=== PATIENT | female | born 1945 | race Two or more races ===

== ENCOUNTER 2024-05-06 13:48 | Outpatient (AMB) | payer MEDICARE, MEDICAID, SELFPAY ==
--- NOTE | 2024-05-06 14:17 | PD.ORTHCLVIS ---
Vital signs 05/06/24 14:20 Height 1.65 m Height Method Stated Weight 87.997 kg Weight Measurement Method Standing Scale BMI 32.3 BP 133/72 H Blood Pressure Source Automatic Cuff Blood Pressure Location Left Upper Arm Position Sitting Respiration 19 Pulse 74 Pulse Source Monitor Temp 97.3 F Temp Source Temporal Artery Scan Pulse Oximetry (%) 96 Oxygen Delivery Method Room Air Med/Allergies Allergies & Medications Allergies No Known Allergies Allergy (Verified 05/06/24 14:21) Medication Reconciliation hydrocodone 7.5 mg-acetaminophen 325 mg tablet 1 tab PO Q8H PRN Pain 02/24/19 [History Confirmed 05/06/24] levothyroxine 112 mcg tablet 112 mcg PO QDAY 02/24/19 [History Confirmed 05/06/24] losartan 100 mg tablet 100 mg PO QDAY 02/24/19 [History Confirmed 05/06/24] albuterol sulfate 90 mcg/actuation aerosol inhaler (Ventolin HFA) 2 puff inhalation Q4H PRN sob #2 grams 04/28/19 [Rx Confirmed 05/06/24] budesonide-formoterol HFA 80 mcg-4.5 mcg/actuation aerosol inhaler (Symbicort) 1 puff inhalation DAILY #6.9 grams 04/28/19 [Rx Confirmed 05/06/24] guaifenesin 600 mg tablet, extended release 12 hr 600 mg PO BID PRN congestion #10 tabs 04/28/19 [Rx Confirmed 05/06/24] levofloxacin 500 mg tablet (Levaquin) 500 mg PO QDAY #7 tabs 04/28/19 [Rx Confirmed 05/06/24] methylprednisolone 4 mg tablets in a dose pack (Medrol (Moreno)) 4 mg PO .as directed #21 tabs 04/28/19 [Rx Confirmed 05/06/24] Exam Exam Patient is in no acute distress and is cooperative with the examination today. Breathing is nonlabored. In no respiratory distress. Bilateral extremities were evaluated and demonstrates sensation intact to light touch. Palpable pedal pulses are present. No significant edema is present. Bilateral hips were examined. The patient has no pain with log roll of the hips. Internal rotation to 30 degrees and external rotation to 30 degrees is painless. Negative FADIR. The left knee was examined.The left knee has significant laxity in both the medial lateral plane as well as the AP plane. Range of motion is 0 to 105 degrees The right knee was also examined. The right knee is in neutral alignment. Range of motion is20 degrees of hyperextension to 100 degrees. Knee feels unstable to post varus valgus as well as AP plane in both flexion and extension. 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 We will start by getting An ESR and CRP To rule out a persistent infection. I will need to get bilateral knee x-rays as I am very curious why the right knee is so unstable. I will see her back for routine follow-up. We will do an infection workup as well Advanced Care Planning Discussion Advance care planning discussed with:: patient Office Procedures GNS Level of Care Nursing/Assessment Patient Status: Initial/New Patient Nursing Assessment/Reassesment: Medication Reconciliation, Update PMH in EMR and Vital Signs Coordination of Care: Complex Care and Chronic Disease 1-5, Education Complex Pt/Fam, Consent,records obtained, informed consent, 1 Ins Authorization, Lab and Imaging orders, Results/Orders obtained and Staff clarify orders New Patient Charge New Patient Point Assignment: 1124 New Patient Point Charge: CONVERTIBLE SOFA BEDSPRING TESTER Level 4 ([id number]) [place] Intake Visit Data Collection New Patient or Established: New Patient (never been to [facility]) 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: No PCP or OBGYN visit in last 3 months: Yes Hx Now: No Do You Feel Safe at Home: Yes Authorities Contacted: N/A Questionairres Past Medical History Past Medical History Have you ever been diagnosed with any of the following: Cardiology Problems Congestive Heart Failure: No Hypertension: Yes Respiratory Problems Chronic Obstructive Pulmonary Disease (COPD): No Asthma: Yes Genital/Urinary Problems Renal Disease: No Endocrine Problems Diabetes Mellitus Type 1: No Diabetes Mellitus Type 2: No Hyperthyroidism: Yes Hypothyroidism: Yes Subjective Visit Visit for: new patient and knee Immunization / Flu Flu Vaccine in the Last 12 Months: No Flu Vaccine Exclusion Criteria: Refused by Patient History of Present Illness Chief complaint: Bilateral knee pain and arthritis Patient is a 78-year-old female with a 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 She underwent a I&D of the right knee 4 months later. She reports significant right knee pain as well as left knee pain. She reports The right knee never really felt better since surgery. Both knees feel unstable and feel like they are getting give out. She has not had significant conservative treatment on the left. She uses a walker or a wheelchair Personal History Occupation: DISABLED Pain Pain level (0-10): 7 Pain duration: CONSTANT Pain location: inside (medial), outside (lateral), anterior and posterior Pain quality: sharp, aching and burning Pain timing: night, increases with activity and stairs Associated signs & symptoms: weakness and stiffness Ambulatory data Ambulatory device: other (specify) (WHEEL CHAIR BOUND) Treatments Number of previous injections: 2 Improvement with previous injections: No Number of Physical Therapy sessions: 3 Improvement with PT: No Improvement with NSAIDS: no Review of Systems Review of Systems: All systems negative unless otherwise noted in HPI.
[2024-05-06 14:20] VITALS: BP 133/72; PULSE 74; RESP 19; TEMP 36.3; O2SAT 96; BMI 32.3
== END 2024-05-06 14:40 | disposition home or self-care (01) ==
PROVIDERS: PCP Nurse Practitioner Family; Referring Provider Nurse Practitioner Family; Supervising Provider Orthopaedic Surgery Adult Reconstructive Orthopaedic Surgery; Visit Provider Orthopaedic Surgery Adult Reconstructive Orthopaedic Surgery
DX: M25.562 Pain in left knee (principal); M25.561 Pain in right knee; Z96.651 Presence of right artificial knee joint; I10 Essential (primary) hypertension; E03.9 Hypothyroidism, unspecified; Z99.3 Dependence on wheelchair
CPT/HCPCS: 99204; G0463

== ENCOUNTER → 2024-05-06 | Outpatient (CLI) | payer MEDICARE, MEDICAID, SELFPAY ==
[2024-05-06 17:42] LABS: Sed Rate (ESR) 36 mm/hr (0-30)
[2024-05-06 17:59] LABS: C-Reactive Protein < 0.4 mg/dL (0.0-0.9)
== END | disposition home or self-care (01) ==
PROVIDERS: PCP Nurse Practitioner Family; Referring Provider Orthopaedic Surgery Adult Reconstructive Orthopaedic Surgery; Visit Provider Orthopaedic Surgery Adult Reconstructive Orthopaedic Surgery
DX: M25.561 Pain in right knee (principal); M25.562 Pain in left knee
CPT/HCPCS: 36415; 85652; 86140

== ENCOUNTER → 2024-05-06 | Outpatient (CLI) | payer MEDICARE, MEDICAID, SELFPAY ==
--- NOTE | 2024-05-06 15:06 | XR_ITS ---
Examination: Knee bilateral, 8 views Technique: Knee AP, lateral, oblique, axial image knee total 8 views Date and time of exam: May 05, 2024 1832 hrs. Indications: Bilateral knee pain beginning 5 minutes ago Findings: Moderate osteopenia Total right knee arthroplasty. Satisfactory alignment. No loosening of the prosthetic components There are 2 axial views of the left patella Advanced left knee tricompartment osteoarthritis No acute fracture Large knee effusion on the left seen with internal derangement Impression: Total right knee arthroplasty with satisfactory alignment Advanced left knee tricompartment osteoarthritis
== END | disposition home or self-care (01) ==
PROVIDERS: Referring Provider Orthopaedic Surgery Adult Reconstructive Orthopaedic Surgery; Visit Provider Orthopaedic Surgery Adult Reconstructive Orthopaedic Surgery
DX: M17.12 Unilateral primary osteoarthritis, left knee (principal); M25.561 Pain in right knee; Z96.651 Presence of right artificial knee joint
CPT/HCPCS: 73564

== ENCOUNTER 2024-05-23 14:27 | Outpatient (AMB) | payer MEDICARE, MEDICAID, SELFPAY ==
[2024-05-23 14:43] VITALS: BP 136/80; PULSE 83; RESP 18; TEMP 36.6; O2SAT 96; BMI 32.3
--- NOTE | 2024-05-23 14:43 | ORTHONT_ITS ---
Vital signs 05/23/24 14:43 Height 1.65 m Height Method Stated Weight 87.99 kg Weight Measurement Method Stated by Patient BMI 32.3 BP 136/80 H Blood Pressure Source Automatic Cuff Blood Pressure Location Left Upper Arm Position Sitting Respiration 18 Pulse 83 Pulse Source Monitor Temp 97.8 F Temp Source Temporal Artery Scan Pulse Oximetry (%) 96 Oxygen Delivery Method Room Air Med/Allergies Allergies & Medications Allergies No Known Allergies Allergy (Verified 05/23/24 14:44) Medication Reconciliation hydrocodone 7.5 mg-acetaminophen 325 mg tablet 1 tab PO Q8H PRN Pain 02/24/19 [H istory Confirmed 05/23/24] levothyroxine 112 mcg tablet 112 mcg PO QDAY 02/24/19 [History Confirmed 05/23/24] losartan 100 mg tablet 100 mg PO QDAY 02/24/19 [History Confirmed 05/23/24] albuterol sulfate 90 mcg/actuation aerosol inhaler (Ventolin HFA) 2 puff inhalation Q4H PRN sob #2 grams 04/28/19 [Rx Confirmed 05/23/24] budesonide-formoterol HFA 80 mcg-4.5 mcg/actuation aerosol inhaler (Symbicort) 1 puff inhalation DAILY #6.9 grams 04/28/19 [Rx Confirmed 05/23/24] guaifenesin 600 mg tablet, extended release 12 hr 600 mg PO BID PRN congestion #10 tabs 04/28/19 [Rx Confirmed 05/23/24] levofloxacin 500 mg tablet (Levaquin) 500 mg PO QDAY #7 tabs 04/28/19 [Rx Confirmed 05/23/24] methylprednisolone 4 mg tablets in a dose pack (Medrol (Moreno)) 4 mg PO .as directed #21 tabs 04/28/19 [Rx Confirmed 05/23/24] Exam Exam Patient is in no acute distress and is cooperative with the examination today. Breathing is nonlabored. In no respiratory distress. Bilateral extremities were evaluated and demonstrates sensation intact to light touch. Palpable pedal pulses are present. No significant edema is present. Bilateral hips were examined. The patient has no pain with log roll of the hips. Internal rotation to 30 degrees and external rotation to 30 degrees is painless. Negative FADIR. The left knee was examined.The left knee has significant laxity in both the medial lateral plane as well as the AP plane. Range of motion is 0 to 105 degrees The right knee was also examined. The right knee is in neutral alignment. Range of motion is20 degrees of hyperextension to 100 degrees. Knee feels unstable to post varus valgus as well as AP plane in both flexion and extension. Right knee demonstrates a cemented total knee replacement. I do not see any evidence of loosening. Left knee demonstrates mild to moderate arthritis. The knee films are nonweightbearing and she cannot stand. Assessment and Plan Problem List (1) Infection of prosthetic right knee joint: Status: Acute Plan: Patient is a 78-year-old female with right knee pain after a periprosthetic joint infection. She had pain since surgery. Her ESR is high. I recommend a joint aspiration to rule out infection. We will send it for Synovasure. I discussed the different treatment options depending on what the results show. Given the fact that she has global instability, if she has no infection, I would consider a revision for Improved stability. I will see her back after her aspiration is also done. I would do it in the office but we are currently aspiration kits (2) Instability of both knee joints: Status: Acute Advanced Care Planning Discussion Advance care planning discussed with:: patient Office Procedures GNS Level of Care Nursing/Assessment Patient Status: Established Patient Nursing Assessment/Reassesment: Medication Reconciliation, Update PMH in EMR and Vital Signs Coordination of Care: Complex Care and Chronic Disease 1-5, Education Complex Pt/Fam, Consent,records obtained, informed consent, Lab and Imaging orders, Results/Orders obtained and Staff clarify orders Established Patient Charge Established Patient Point Assignment: 110 Established Patient Point Charge: EP Level 3 (80-115) [place] Intake Visit Data Collection New Patient or Established: Established Patient (seen at [facility] within 3 years) Reason for Visit:: KNEE XRAY 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 PCP or OBGYN visit in last 3 months: Yes Hx Now: No Do You Feel Safe at Home: Yes Authorities Contacted: N/A Questionairres Past Medical History Past Medical History Have you ever been diagnosed with any of the following: Cardiology Problems Congestive Heart Failure: No Hypertension: Yes Respiratory Problems Chronic Obstructive Pulmonary Disease (COPD): No Asthma: Yes Genital/Urinary Problems Renal Disease: No Endocrine Problems Diabetes Mellitus Type 1: No Diabetes Mellitus Type 2: No Hyperthyroidism: Yes Hypothyroidism: Yes Subjective Visit Visit for: follow up visit, knee and x-rays Immunization / Flu Flu Vaccine in the Last 12 Months: No Flu Vaccine Exclusion Criteria: Refused by Patient History of Present Illness Chief complaint: Bilateral knee pain and arthritis Patient is a 78-year-old female with a 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 She underwent a I&D of the right knee 4 months later. She reports significant right knee pain as well as left knee pain. She reports The right knee never really felt better since surgery. Both knees feel unstable and feel like they are getting give out. She has not had significant conservative treatment on the left. She uses a walker or a wheelchair Her ESR is high. CRP is normal at less than 0.6 Personal History Occupation: DISABLED Red flag PMH: none Pain Pain level (0-10): 8 Pain duration: ALL THE TIME Pain location: inside (medial), outside (lateral) and posterior Pain quality: sharp, aching and burning Pain timing: night, increases with activity and stairs Associated signs & symptoms: weakness and stiffness Ambulatory data Ambulatory device: other (specify) (WHEELE CHAIR) Treatments Number of previous injections: 0 Improvement with previous injections: No Number of Physical Therapy sessions: 2 Improvement with PT: No Improvement with NSAIDS: n/a Review of Systems Review of Systems: All systems negative unless otherwise noted in HPI.
== END 2024-05-23 15:23 | disposition home or self-care (01) ==
PROVIDERS: PCP Nurse Practitioner Family; Referring Provider Nurse Practitioner Family; Supervising Provider Orthopaedic Surgery Adult Reconstructive Orthopaedic Surgery; Visit Provider Orthopaedic Surgery Adult Reconstructive Orthopaedic Surgery
DX: T84.53XA Infection and inflammatory reaction due to internal right knee prosthesis, initial encounter (principal); M25.361 Other instability, right knee; M25.362 Other instability, left knee
CPT/HCPCS: 99213; G0463

== ENCOUNTER → 2024-06-04 | Outpatient (CLI) | payer MEDICARE, MEDICAID, SELFPAY ==
--- NOTE | 2024-06-04 08:30 | XR_ITS ---
Exam: Fluoroscopic guided attempted right knee joint aspiration. DATE: 06/04/2024, 9:23 AM INDICATION: Pain. Flow and time: 2.3 minutes Dose: 2.72 mGy PROCEDURE: After discussion of risks and benefits informed consent was obtained. Patient was brought to the fluoroscopy suite and placed supine on the exam table. Preliminary fluoroscopic evaluation. Redemonstrated expected postoperative changes of total knee arthroplasty with normal-appearing alignment. The overlying skin was cleaned and draped in normal sterile surgical fashion. 10 cc's of 1% lidocaine was used for local anesthesia. Using fluoroscopic guidance a 20-gauge spinal needle was sequentially advanced into the knee joint. Fluid could be. Needle was repositioned into the suprapatellar bursal sac. No fluid could be obtained. Needle was withdrawn. Hemostasis was achieved. The access site was covered with a sterile dressing. No immediate complications. IMPRESSION: Unsuccessful fluoroscopic guided right knee aspiration as above.
--- NOTE | 2024-06-04 09:07 | XR_ITS ---
Examination: Right knee 2 views Technique one AP lateral right knee 2 views Exam date and time: May 2024 at 0825 hrs. Indications: Right knee swelling and pain years Findings: Severe osteopenia. Total right knee arthroplasty. Satisfactory alignment. No fracture. No loosening prosthetic components Impression: Total right knee arthroplasty with satisfactory alignment
== END | disposition home or self-care (01) ==
LOC: SIRX 06-05 08:16
PROVIDERS: PCP Nurse Practitioner Family; Referring Provider Orthopaedic Surgery Adult Reconstructive Orthopaedic Surgery; Visit Provider Orthopaedic Surgery Adult Reconstructive Orthopaedic Surgery
DX: T84.53XA Infection and inflammatory reaction due to internal right knee prosthesis, initial encounter (principal)
CPT/HCPCS: 20610; 73560; 77002

== ENCOUNTER 2024-10-02 14:33 | Outpatient (AMB) | payer MEDICARE, MEDICAID, SELFPAY ==
[2024-10-02 15:12] VITALS: BP 155/77; PULSE 77; RESP 18; TEMP 36.9; O2SAT 92; BMI 32.3
--- NOTE | 2024-10-02 15:12 | ORTHONT_ITS ---
Vital signs 10/02/24 15:12 Height 1.65 m Height Method Stated Weight 87.997 kg Weight Measurement Method Standing Scale BMI 32.3 BP 155/77 H Blood Pressure Source Automatic Cuff Blood Pressure Location Right Upper Arm Position Sitting Respiration 18 Pulse 77 Pulse Source Monitor Temp 98.4 F Temp Source Temporal Artery Scan Pulse Oximetry (%) 92 L Oxygen Delivery Method Room Air Med/Allergies Allergies & Medications Allergies No Known Allergies Allergy (Verified 10/02/24 15:13) Medication Reconciliation hydrocodone 7.5 mg-acetaminophen 325 mg tablet 1 tab PO Q8H PRN Pain 02/24/19 [ History Confirmed 10/02/24] levothyroxine 112 mcg tablet 112 mcg PO QDAY 02/24/19 [History Confirmed 10/02/24] losartan 100 mg tablet 100 mg PO QDAY 02/24/19 [History Confirmed 10/02/24] albuterol sulfate 90 mcg/actuation aerosol inhaler (Ventolin HFA) 2 puff inhalation Q4H PRN sob #2 grams 04/28/19 [Rx Confirmed 10/02/24] budesonide-formoterol HFA 80 mcg-4.5 mcg/actuation aerosol inhaler (Symbicort) 1 puff inhalation DAILY #6.9 grams 04/28/19 [Rx Confirmed 10/02/24] guaifenesin 600 mg tablet, extended release 12 hr 600 mg PO BID PRN congestion #10 tabs 04/28/19 [Rx Confirmed 10/02/24] levofloxacin 500 mg tablet (Levaquin) 500 mg PO QDAY #7 tabs 04/28/19 [Rx Confirmed 10/02/24] methylprednisolone 4 mg tablets in a dose pack (Medrol (Moreno)) 4 mg PO .as directed #21 tabs 04/28/19 [Rx Confirmed 10/02/24] Exam Exam Patient is in no acute distress and is cooperative with the examination today. Breathing is nonlabored. In no respiratory distress. Bilateral extremities were evaluated and demonstrates sensation intact to light touch. Palpable pedal pulses are present. No significant edema is present. Bilateral hips were examined. The patient has no pain with log roll of the hips. Internal rotation to 30 degrees and external rotation to 30 degrees is painless. Negative FADIR. The left knee was examined.The left knee has significant laxity in both the medial lateral plane as well as the AP plane. Range of motion is 0 to 105 degrees The right knee was also examined. The right knee is in neutral alignment. Range of motion is 20 degrees of hyperextension to 100 degrees. Knee feels unstable to post varus valgus as well as AP plane in both flexion and extension. Right knee demonstrates a cemented total knee replacement. I do not see any evidence of loosening. Left knee demonstrates mild to moderate arthritis. The knee films are nonweightbearing and she cannot stand. Assessment and Plan Problem List (1) Infection of prosthetic right knee joint: Status: Acute Plan: Patient is a 78-year-old female with right knee pain after a periprosthetic joint infection. She had pain since surgery. She has global instability and knee hyperextension. I would likely recommend upsizing of the poly. In addition we still need to rule out infection as her prior aspiration was negative. I will order repeat ESR and CRP. I discussed with her that we will likely have 2 options. We will likely correct her instability with upsizing her probably. However, given that it is still unclear whether she has a infection, it is possible that we would do an exchange arthroplasty if there is an infection including explantation and implantation of a spacer We will order an ESR and CRP and have her come back. Will also have to get medical clearance for revision. (2) Instability of both knee joints: Status: Acute Advanced Care Planning Discussion Advance care planning discussed with:: patient and child Office Procedures GNS Level of Care Nursing/Assessment Patient Status: Established Patient Nursing Assessment/Reassesment: Medication Reconciliation, Update PMH in EMR and Vital Signs Coordination of Care: Complex Care and Chronic Disease 1-5, Education Complex Pt/Fam, Consent,records obtained, informed consent, Results/Orders obtained and Staff clarify orders Special Needs: Language special needs Established Patient Charge Established Patient Point Assignment: 95 Established Patient Point Charge: EP Level 3 (80-115) [place] Intake Visit Data Collection New Patient or Established: Established Patient (seen at [facility] within 3 years) Reason for Visit:: f/u xrays and knee pain Seen by Clinical Staff ONLY (RN/MA): No Verbal consent obtained for Telemed visit?: No 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 PCP or OBGYN visit in last 3 months: Yes Hx Now: No Do You Feel Safe at Home: Yes Authorities Contacted: N/A Questionairres Past Medical History Past Medical History Have you ever been diagnosed with any of the following: Cardiology Problems Congestive Heart Failure: No Hypertension: Yes Respiratory Problems Chronic Obstructive Pulmonary Disease (COPD): No Asthma: Yes Genital/Urinary Problems Renal Disease: No Endocrine Problems Diabetes Mellitus Type 1: No Diabetes Mellitus Type 2: No Hyperthyroidism: Yes Hypothyroidism: Yes Subjective Visit Visit for: follow up visit, knee and x-rays Immunization / Flu Flu Vaccine in the Last 12 Months: No Flu Vaccine Exclusion Criteria: No Exclusion Criteria History of Present Illness Chief complaint: f/u xrays & knee pain Patient is pleasant 78-year-old female with an unstable right knee. She had a right total knee replacement done 8 years ago. This is complicated by infection. She reports significant pain in the right knee that is increasing. She is wheelchair-bound for the most of the time. He reports the right knee is what is causing her to be unable to walk. She reports it feels unstable and that there is pain almost all the time. She had an elevated ESR at the previous visit and was sent here for knee aspiration. They were unable to get any fluid out of the knee. Personal History Occupation: disabled Red flag PMH: BMI BMI Counceling provided: Yes Pain Pain level (0-10): 6 Pain duration: comes and goes Pain location: inside (medial) Pain quality: dull Associated signs & symptoms: none Ambulatory data Ambulatory device: other (specify) (whhelchair) Treatments Improvement with previous injections: No Improvement with PT: No Improvement with NSAIDS: no Review of Systems Review of Systems: All systems negative unless otherwise noted in HPI.
== END 2024-10-02 15:32 | disposition home or self-care (01) ==
LOC: HODSRG 14:33
PROVIDERS: PCP Nurse Practitioner Family; Referring Provider Nurse Practitioner Family; Supervising Provider Orthopaedic Surgery Adult Reconstructive Orthopaedic Surgery; Visit Provider Orthopaedic Surgery Adult Reconstructive Orthopaedic Surgery
DX: T84.53XD Infection and inflammatory reaction due to internal right knee prosthesis, subsequent encounter (principal); Y84.9 Medical procedure, unspecified as the cause of abnormal reaction of the patient, or of later complication, without mention of misadventure at the time of the procedure; M25.361 Other instability, right knee; M25.362 Other instability, left knee; I10 Essential (primary) hypertension; E03.9 Hypothyroidism, unspecified
CPT/HCPCS: 99213; G0463

== ENCOUNTER → 2024-10-02 | Outpatient (CLI) | payer MEDICARE, MEDICAID, SELFPAY ==
[2024-10-02 16:44] LABS: Sed Rate (ESR) 50 mm/hr (0-30)
[2024-10-02 16:48] LABS: C-Reactive Protein 0.6 mg/dL (0.0-0.9)
== END | disposition home or self-care (01) ==
PROVIDERS: PCP Nurse Practitioner Family; Referring Provider Orthopaedic Surgery Adult Reconstructive Orthopaedic Surgery; Visit Provider Orthopaedic Surgery Adult Reconstructive Orthopaedic Surgery
DX: M25.361 Other instability, right knee (principal); T84.53XA Infection and inflammatory reaction due to internal right knee prosthesis, initial encounter
CPT/HCPCS: 36415; 85652; 86140